=== PATIENT | female | born 1990 | race Caucasian/White ===

== ENCOUNTER 2017-03-06 23:52 | Emergency (ER) | payer OTHER ==
[~2017-03-06] VITALS: Ht 167.6 cm; Wt 75.9 kg
[~2017-03-06 23:52] MED LIST: FLNIN/ NAE
[2017-03-06 23:54] VITALS: TEMP 37; Ht 167.6 cm; Wt 75.9 kg
[2017-03-07] MEDS ORDERED: PRED50TA PO (00:09)
[2017-03-07] MEDS ORDERED: AMOX875T PO (00:09)
[2017-03-07] MEDS ORDERED: AMOXICIL/CLAVU 875MG HOME PACK PO ONE (00:15)
--- NOTE | 2017-03-07 00:24 | EMERGENCY ROOM VISIT NOTE ---
History First contact with patient: 23:58 Chief Complaint: FLU LIKE SX Stated Complaint: SICK SINUS COUGH History of Present Illness The patient is a 26 year old female who presents to the Emergency Room with complaints of sinus pain and congestion with fever and chills for the past several days. Patient has a history of sinusitis and symptoms feel similar. She normally needs antibiotics and steroids. She follows with ENT. She has an appointment in a few days with the family care doctor. Patient denies neck stiffness, chest pain, dyspnea, abdominal pain, sore throat. She is tolerating by mouth fluids and food. She smokes. No temperature was taken. Review of Systems See HPI for pertinent positives & negatives. A total of 10 systems reviewed and were otherwise negative. Past Medical/Surgical History Medical Problems: (1) Lymphadenopathy, cervical (2) No Known Active Medical Problems (3) Sinusitis, acute (4) Sinusitis, acute (5) Sinusitis, acute Family History Cancer Diabetes mellitus Heart disease Hypertension Social History Smoking Status: Current Every Day Smoker Alcohol Use: none Drug Use: none Housing Status: lives with family Occupation Status: employed Current/Historical Medications Scheduled Amoxicillin & Pot Clavulanate (Augmentin 875-125 mg), 1 TAB PO BID Fluticasone Propionate (Fluticasone Propionate), 2 SPRAYS JEANNETTE DAILY Prednisone (Prednisone), 50 MG PO DAILY Physical Exam Vital Signs Date Time Temp Pulse Resp B/P (MAP) Pulse Ox O2 Delivery O2 Flow Rate FiO2 03/06/17 23:54 37.0 80 16 125/82 98 Room Air Physical Exam VITALS: Vitals are noted on the nurse's note and reviewed by myself. Vital signs stable. GENERAL: Pleasant female, in no acute distress, nondiaphoretic, well-developed well-nourished. SKIN: The skin was without rashes, erythema, edema, or bruising. There is no tenting of the skin. Capillary reflex less than 2 seconds. HEAD: Normocephalic atraumatic. EARS: External auditory canals clear, tympanic membranes pearly ann without erythema or effusion bilaterally. EYES: Pupils equal round and reactive to light and accommodation. Conjunctivae without injection, sclerae without icterus. Extraocular movements intact. NOSE: Patent, turbinates without inflammation or discharge. Maxillary sinus tenderness. MOUTH: Mucous membranes moist. Pharynx without erythema or exudate. Uvula midline. Airway patent. Tongue does not deviate. NECK: Supple without nuchal rigidity. No lymphadenopathy. No thyromegaly. Cervical spine is nontender. No JVD. No meningeal signs HEART: Regular rate and rhythm without murmurs gallops or rubs. LUNGS: Clear to auscultation bilaterally without wheezes, rales or rhonchi. No dullness to percussion. No retractions or accessory muscle use. ABDOMEN: Positive bowel sounds x 4. Normal tympanic percussion. Soft, nontender, without masses or organomegaly. Riggins sign negative. No guarding or rebound tenderness. No CVA tenderness MUSCULOSKELETAL: No muscle atrophy, erythema, or edema noted. NEURO: Patient was alert and oriented to person place and time. Normal sensation to light and sharp touch. No focal neurological deficits. Medical Decision & Procedures ED Course Prior records/ancillary studies reviewed. Triage Nursing notes reviewed. The patient's history was concerning for a cold sx Differential diagnosis: Etiologies such as viral syndrome, sinusitis, tonsillitis, otitis, pneumonia, influenza, as well as others were entertained. ER treatment provided: Augmentin, prednisone On reassessment the patient felt better. Diagnostics interpreted by me: Deferred This appears to be consistent with sinusitis. Patient had symptoms for several days. She was started on antibiotics. She is advised follow-up family care in her ENT doctor in a few days or here in the ER sooner for high fevers, lethargy , neck stiffness, worsening signs or symptoms or as needed. Patient no signs of airway, moist. No signs of meningitis.. By the evaluation outlined above emergent etiologies such as peritonsillar abscess, retropharyngeal abscess, otitis, pneumonia, meningitis, urinary tract infection, sepsis, bacteremia, as well as others were deemed relatively unlikely. The pt informed about the findings as listed above. All questions were answered and pleased with the treatment. Return instructions were outlined and the patient was discharged in stable condition. Outpatient prescription management: maddie herrera Referral: The patient was referred back to their primary care physician/ENT for follow-up in 2 to 3 days for a recheck of the current condition. Medical Decision As above Medication Reconcilliation Current Medication List: was personally reviewed by me Blood Pressure Screening Patient's blood pressure: Normal blood pressure Impression Primary Impression: Maxillary sinusitis, acute Departure Information Dispostion Home / Self-Care Condition GOOD Prescriptions Amoxicillin & Pot Clavulanate (Augmentin 875-125 mg) 1 Tab Tab 1 TAB PO BID for 9 Days, #18 TAB Prov: Julita Salvador PA-C 03/07/17 Prednisone (Prednisone) 50 Mg Tab 50 MG PO DAILY for 4 Days, #4 TAB Prov: uJlita Salvador PA-C 03/07/17 Forms HOME CARE DOCUMENTATION FORM, Work Instructions, Return To Work: 2 days IMPORTANT VISIT INFORMATION Patient Instructions Sinusitis Acute, My [facility] Additional Instructions Augmentin 875mg: Take one tablet 2 times daily for 10 days. All antibiotics can cause diarrhea. If this occurs and you feel worse or it does not resolve in 1-2 days follow up with your doctor or return to the Emergency Department as this could be signs of serious underlying problems. Any medication can cause an allergic reaction, stop the pills immediately and return to the ER for rash, hives, breathing difficulties, or swelling. Prednisone 50mg: Once daily until the prescription is finished. It is best to take this earlier in the day as some patients note occasional difficulty falling asleep when taken in the late evening. Acetaminophen(Tylenol) may be used for fever or pain. Use 1000mg every six hours as needed. Avoid using more than 3000mg in a 24 hour period. (AND/OR) Ibuprofen(Motrin, Advil) may be used for fever or pain. Use 600mg every six hours as needed. Take with food. Avoid using more than 2400mg in a 24 hour period. Do not use 2400mg per day for more than three consecutive days without physician direction. Prolonged inappropriate use can lead to stomach upset or ulcers. Afrin nasal spray: 2-3 sprays to each nostril twice daily as needed for congestion. Do not use for more than 3-4 days because it can lead to worsening rebound congestion. Pseudoephedrine(Sudaphed): 30-60mg every 6 hours as needed for nasal congestion. Do not take this with other stimulant products or supplements. Rest and drink plenty of fluids. Controlling your fever with Tylenol and Ibuprofen as above will make you feel better. Wash your hands after nose blowing, sneezing, or coughing. Most germs are spread through contact, therefore improper hygiene may result in your close contacts and loved ones becoming ill just like you. Continue current medications. Return to the ER for severe headache, neck stiffness, chest pain, difficulty breathing, fevers, vomiting, worsening of your condition, or as needed. Follow up with your primary physician this week for a recheck of your current condition. Work Instructions Return To Work: 2 days Problem Qualifiers Primary Impression: Maxillary sinusitis, acute Recurrence: recurrent Qualified Codes: J01.01 - Acute recurrent maxillary sinusitis
[2017-03-07 00:30] VITALS: BP 129/77; PULSE 72; O2SAT 97
== END 2017-03-07 00:30 | disposition home or self-care (01) ==
LOC: C.EDB 23:53 → C.EDA 03-07 00:30
DX: J01.00 Acute maxillary sinusitis, unspecified (principal); F17.200 Nicotine dependence, unspecified, uncomplicated; Z86.19 Personal history of other infectious and parasitic diseases; Z80.9 Family history of malignant neoplasm, unspecified; Z83.3 Family history of diabetes mellitus; Z82.49 Family history of ischemic heart disease and other diseases of the circulatory system

== ENCOUNTER 2017-05-07 21:47 | Emergency (ER) | payer OTHER ==
[~2017-05-07] VITALS: Ht 165.1 cm; Wt 73.1 kg
[2017-05-07 21:53] VITALS: TEMP 36.8; Ht 165.1 cm; Wt 73.1 kg
[2017-05-07] MEDS ORDERED: ONDANSETRON INJ 2 MG/ML 2 ML VIAL IV STA (22:12)
[2017-05-07] MEDS ORDERED: KETOROLAC TROMETHAMINE 30 MG/ML VIAL IV STA (22:12)
[2017-05-07] MEDS ORDERED: DEXAMETHASONE SOD INJ 4 MG/ML VIAL IV STA (22:12)
[2017-05-07] MEDS ORDERED: ETON1IMP2 INTRAD (22:25)
[2017-05-07] MEDS ORDERED: ACET-1256 PO (22:25)
[2017-05-07] MEDS ORDERED: ASPI-390 PO (22:31)
[2017-05-07] MEDS ORDERED: IBUP-103 PO (22:31)
--- NOTE | 2017-05-07 22:51 | EMERGENCY ROOM VISIT NOTE ---
History First contact with patient: 21:58 Chief Complaint: HEADACHE Stated Complaint: MIGRAINE History of Present Illness The patient is a 27 year old female who presents to the Emergency Room with complaints of a migraine headache. The patient states she has had a headache since waking up with morning. She has a history of migraines. She stats that she typically has migraines a few times a month. The patient is scheduled to see a neurologist in [place] and a few months. She states the pain is located all over her head. She has associated nausea and vomiting. She also reports photosensitivity. She states this is very similar to her typical migraines. It is not the worst headache of her life. She rates her discomfort a 9/10. She has taken Excedrin and Motrin today without relief. She denies any fevers/chills, recent illness, neck pain/stiffness, blurred vision, slurred speech, numbness or weakness. Review of Systems A complete 10 point review of systems was reviewed with the patient with pertinent positives and negatives as per history of present illness. All else were negative. Past Medical/Surgical History Medical Problems: (1) Lymphadenopathy, cervical (2) No Known Active Medical Problems (3) Sinusitis, acute (4) Sinusitis, acute (5) Sinusitis, acute Family History Cancer Diabetes mellitus Heart disease Hypertension Social History Smoking Status: Never Smoker Alcohol Use: none Drug Use: none Housing Status: lives with family Occupation Status: employed Current/Historical Medications Scheduled Etonogestrel (Nexplanon), 68 MG INTRAD UD Scheduled PRN Acetaminophen (Tylenol), 1,000 MG PO Q6H PRN for Pain Ruvwqcg-Brndcbzvrcnkm-Kfvjxkpi (Excedrin Migraine), 1 TAB PO UD PRN for Migraine Fluticasone Propionate (Fluticasone Propionate), 2 SPRAYS JEANNETTE DAILY PRN for Allergy Symptoms Ibuprofen Tab (Advil), 400-600 MG PO Q6H PRN for Headache or Pain Physical Exam Vital Signs Date Time Temp Pulse Resp B/P (MAP) Pulse Ox O2 Delivery O2 Flow Rate FiO2 05/07/17 23:46 76 18 124/82 99 Room Air 05/07/17 21:53 36.8 85 20 140/84 98 Room Air Physical Exam VITALS: Vitals are noted on the nurse's note and reviewed by myself. Vital signs stable. GENERAL: This is a 27-year-old female, in no acute distress, nondiaphoretic, well-developed well-nourished. HEAD: Normocephalic atraumatic. EARS: External auditory canals clear, tympanic membranes pearly ann without erythema or effusion bilaterally. EYES: Pupils equal round and reactive to light and accommodation. Conjunctivae without injection, sclerae without icterus. Extraocular movements intact. MOUTH: Mucous membranes moist. Tonsils are not enlarged. Pharynx without erythema or exudate. NECK: Supple without nuchal rigidity. No lymphadenopathy. HEART: Regular rate and rhythm without murmurs gallops or rubs. LUNGS: Clear to auscultation bilaterally without wheezes, rales or rhonchi. MUSCULOSKELETAL: Strength 5/5 throughout. NEURO: Patient was alert and oriented to person place and time. Normal sensation to light and sharp touch. No focal neurological deficits. Medical Decision & Procedures Medications Administered Medications (Trade) Dose Ordered Sig/Alyssa Route Start Time Stop Time Status Last Admin Dose Admin Ketorolac Tromethamine (Toradol Inj) 30 mg NOW STAT IV 05/07/17 22:12 05/07/17 22:13 DC 05/07/17 22:39 30 MG Dexamethasone Sodium Phosphate (Decadron Inj) 10 mg NOW STAT IV 05/07/17 22:12 05/07/17 22:13 DC 05/07/17 22:40 10 MG Ondansetron HCl (Zofran Inj) 4 mg NOW STAT IV 05/07/17 22:12 05/07/17 22:13 DC 05/07/17 22:39 4 MG Medical Decision The differential diagnosis includes acute intracranial bleed, meningitis, encephalitis, mass or mass effect, sinusitis, infection, tumor, headache, temporal arteritis and carbon monoxide exposure, and migraine. The patient is a 27-year-old female who presents today complaining of a headache which she states is typical of her migraines. Patient was given IV Toradol, Decadron, and Zofran with complete resolution of her headache. There is no evidence of meningitis or encephalitis on exam. Patient was discharged home to follow up with her PCP. Based on the patient's presentation and work up, I feel the patient is stable for outpatient treatment. The patient was educated to return to the emergency department for any worsening of their current condition or new/concerning symptoms. She will follow up with her PCP. Medication Reconcilliation Current Medication List: was personally reviewed by me Blood Pressure Screening Patient's blood pressure: Normal blood pressure Impression Primary Impression: Migraine Departure Information Dispostion Home / Self-Care Condition GOOD Referrals Fay Figueroa (PCP) Patient Instructions My [facility] Additional Instructions You have been treated in the Emergency Department for a Headache. For pain control, you can use the following zcvn-qbm-asrsdgo medicines (if >12 yo): - Regular strength (325mg/tab) Tylenol (acetaminophen) 2 tabs every 4-6 hours as needed. Do not exceed 12 tablets in a 24 hour period. Avoid taking more than 4 grams (4000 mg) of Tylenol per day. This includes any other sources of acetaminophen you may take on a regular basis. - Regular strength (200 mg/tab) Advil (ibuprofen) 1-2 tabs every 4-6 hours as needed. Do not exceed a dose of 3200 mg per day. You should relax in a quiet, dark place for the rest of the day. Avoid any possible triggers including: cigarette smoke, caffeine, nicotine, chocolate, wine, beer, loud noises or music, or bright lights. You should schedule a follow-up appointment in 2-3 days with your Primary Care Provider or established Neurologist for further evaluation and treatment of your Headache. Return to the Emergency Department if your current symptoms worsen despite treatment course outlined above, or if you develop any of the following symptoms : intractable pain despite aforementioned treatment course, visual disturbances , loss of vision, unilateral weakness or facial drooping, slurring of speech, loss of coordination, or loss of consciousness. Problem Qualifiers Primary Impression: Migraine Migraine type: unspecified Status migrainosus presence: without status migrainosus Intractability: not intractable Qualified Codes: G43.909 - Migraine, unspecified, not intractable, without status migrainosus
[2017-05-07 23:46] VITALS: BP 124/82; PULSE 76; O2SAT 99
== END 2017-05-07 23:51 | disposition home or self-care (01) ==
LOC: C.EDB 21:48 → C.EDC 23:51
DX: G43.909 Migraine, unspecified, not intractable, without status migrainosus (principal); Z83.3 Family history of diabetes mellitus; Z82.49 Family history of ischemic heart disease and other diseases of the circulatory system

== ENCOUNTER 2017-05-31 01:32 | Emergency (ER) | payer OTHER ==
[~2017-05-31] VITALS: Ht 165.1 cm; Wt 71.4 kg
[~2017-05-31 01:32] MED LIST changes: +ACET-1256 PO; +ASPI-390 PO; +ETON1IMP2 INTRAD; +IBUP-103 PO
[2017-05-31 01:42] VITALS: Ht 165.1 cm; Wt 71.4 kg
[2017-05-31] MEDS ORDERED: MoRPHine SULFATE 4 MG/ML 1 ML CARP\\VIAL IV STA (01:55)
[2017-05-31] MEDS ORDERED: ONDANSETRON INJ 2 MG/ML 2 ML VIAL IV STA (01:55)
--- NOTE | 2017-05-31 02:09 | EMERGENCY ROOM VISIT NOTE ---
History Report prepared by Zoraida: Milan Magana Under the Supervision of: Dr. Kamran Ford M.D. First contact with patient: 01:45 Chief Complaint: ABDOMINAL PAIN Stated Complaint: SEVERE ABDOMINAL PAIN History of Present Illness The patient is a 27 year old female who presents to the Emergency Room with complaints of constant lower abdominal that began last night. She rates her pain as a 10/10 in severity. The patient states that the pain is relieved with bending her knees. The patient reports that the pain is mainly in the left lower quadrant but admits that the pain radiates to her right lower abdomen and back. She reports that she has also been experiencing intermittent nausea. The patient states that she took Motrin and Tylenol for her symptoms but denies any relief. She states that she is currently on a control pill and denies having menstrual period. The patient denies a history of abdominal issues, injuries, trauma, loss of consciousness, diarrhea, drinking alcohol, urinary symptoms, and ankle swelling. Source of History: patient Onset: last night Position: abdomen (lower) Symptom Intensity: 10/10 Timing: constant Modifying Factors (Relieving): tylenol, other (Motrin, raising her knees) Associated Symptoms: + nausea, + back pain, No LOC, No diarrhea, No urinary symptoms Review of Systems See HPI for pertinent positives & negatives. A total of 10 systems reviewed and were otherwise negative. Past Medical & Surgical Medical Problems: (1) Lymphadenopathy, cervical (2) No Known Active Medical Problems (3) Sinusitis, acute (4) Sinusitis, acute (5) Sinusitis, acute Family History Cancer Diabetes mellitus Heart disease Hypertension Social History Smoking Status: Current Every Day Smoker Alcohol Use: none Drug Use: none Housing Status: lives with family Occupation Status: employed Current/Historical Medications Scheduled Etonogestrel (Nexplanon), 68 MG INTRAD UD Scheduled PRN Acetaminophen (Tylenol), 1,000 MG PO Q6H PRN for Pain Rdetghx-Jxiausbqandfx-Tshevugo (Excedrin Migraine), 1 TAB PO UD PRN for Migraine Fluticasone Propionate (Fluticasone Propionate), 2 SPRAYS JEANNETTE DAILY PRN for Allergy Symptoms Ibuprofen Tab (Advil), 400-600 MG PO Q6H PRN for Headache or Pain Allergies Coded Allergies: Velásquez (Unverified Allergy, Unknown, ANAPHYLAXIS, 05/31/17) Physical Exam Vital Signs Date Time Temp Pulse Resp B/P (MAP) Pulse Ox O2 Delivery O2 Flow Rate FiO2 05/31/17 03:07 78 16 142/74 98 05/31/17 02:54 78 16 142/74 98 Room Air 05/31/17 01:42 36.9 96 18 126/79 99 Room Air Physical Exam GENERAL: Patient is uncomfortable appearing and in moderate distress. HEENT: No acute trauma, normocephalic atraumatic, mucous membranes moist, no nasal congestion, no scleral icterus. NECK: No stridor, no adenopathy, no meningismus, trachea is midline. LUNGS: No dyspnea. Clear to auscultation and equal bilaterally. No wheeze, no rhonchi. HEART: Regular rate and rhythm. No murmurs, rubs, gallops appreciated. ABDOMEN: Soft, vague bilateral mid abdominal tenderness without rebound or guarding, bowel sounds positive, no masses appreciated, no peritonitis. BACK: No midline tenderness, no CVA tenderness EXTREMITIES: Normal motion all extremities, no cyanosis, no edema. NEUROLOGIC: Alert and oriented, no acute motor or sensory deficits, no focal weakness, cranial nerves grossly intact. SKIN: No rash, no jaundice, no diaphoresis. Medical Decision & Procedures Laboratory Results 05/31/17 01:50 Red Blood Count 4.73, Mean Corpuscular Volume 94.5, Mean Corpuscular Hemoglobin 31.7, Mean Corpuscular Hemoglobin Concent 33.6, Mean Platelet Volume 11.1, Neutrophils (%) (Auto) 73.6, Lymphocytes (%) (Auto) 18.1, Monocytes (%) (Auto) 6.3, Eosinophils (%) (Auto) 1.6, Basophils (%) (Auto) 0.3, Neutrophils # (Auto) 6.77, Lymphocytes # (Auto) 1.67, Monocytes # (Auto) 0.58, Eosinophils # (Auto) 0.15, Basophils # (Auto) 0.03 05/31/17 01:50 Test 05/31/17 01:50 White Blood Count 9.21 K/uL (4.8-10.8) Red Blood Count 4.73 M/uL (4.2-5.4) Hemoglobin 15.0 g/dL (12.0-16.0) Hematocrit 44.7 % (37-47) Mean Corpuscular Volume 94.5 fL (80-100) Mean Corpuscular Hemoglobin 31.7 pg (25-34) Mean Corpuscular Hemoglobin Concent 33.6 g/dl (32-36) Platelet Count 216 K/uL (130-400) Mean Platelet Volume 11.1 fL (7.4-10.4) Neutrophils (%) (Auto) 73.6 % Lymphocytes (%) (Auto) 18.1 % Monocytes (%) (Auto) 6.3 % Eosinophils (%) (Auto) 1.6 % Basophils (%) (Auto) 0.3 % Neutrophils # (Auto) 6.77 K/uL (1.4-6.5) Lymphocytes # (Auto) 1.67 K/uL (1.2-3.4) Monocytes # (Auto) 0.58 K/uL (0.11-0.59) Eosinophils # (Auto) 0.15 K/uL (0-0.5) Basophils # (Auto) 0.03 K/uL (0-0.2) RDW Standard Deviation 43.4 fL (36.4-46.3) RDW Coefficient of Variation 12.6 % (11.5-14.5) Immature Granulocyte % (Auto) 0.1 % Immature Granulocyte # (Auto) 0.01 K/uL (0.00-0.02) Urine Color YELLOW Urine Appearance CLOUDY (CLEAR) Urine pH 7.5 (4.5-7.5) Urine Specific [place] 1.014 (1.000-1.030) Urine Protein NEG (NEG) Urine Glucose (UA) NEG (NEG) Urine Ketones NEG (NEG) Urine Occult Blood NEG (NEG) Urine Nitrite NEG (NEG) Urine Bilirubin NEG (NEG) Urine Urobilinogen NEG (NEG) Urine Leukocyte Esterase TRACE (NEG) Urine WBC (Auto) 1-5 /hpf (0-5) Urine RBC (Auto) 0-4 /hpf (0-4) Urine Hyaline Casts (Auto) 1-5 /lpf (0-5) Urine Epithelial Cells (Auto) 10-20 /lpf (0-5) Urine Bacteria (Auto) NEG (NEG) Urine Test NEG (NEG) Anion Gap 5.0 mmol/L (3-11) Est Creatinine Clear Calc Drug Dose 115.8 ml/min Estimated GFR () 133.4 Estimated GFR (Non- 115.1 BUN/Creatinine Ratio 10.0 (10-20) Calcium Level 8.7 mg/dl (8.5-10.1) Total Bilirubin 0.4 mg/dl (0.2-1) Direct Bilirubin 0.1 mg/dl (0-0.2) Aspartate Amino Transf (AST/SGOT) 9 U/L (15-37) Alanine Aminotransferase (ALT/SGPT) 18 U/L (12-78) Alkaline Phosphatase 70 U/L (45-117) Total Protein 8.0 gm/dl (6.4-8.2) Albumin 4.1 gm/dl (3.4-5.0) Lipase 139 U/L (73-393) Laboratory results as reviewed by me. Medications Administered Medications (Trade) Dose Ordered Sig/Alyssa Route Start Time Stop Time Status Last Admin Dose Admin Morphine Sulfate (MoRPHine SULFATE INJ) 4 mg NOW STAT IV 05/31/17 01:55 05/31/17 01:56 DC 05/31/17 02:03 4 MG Ondansetron HCl (Zofran Inj) 4 mg NOW STAT IV 05/31/17 01:55 05/31/17 01:56 DC 05/31/17 02:00 4 MG Ondansetron HCl (ZOFRAN ODT 4MG Home Pack) 1 homepack UD ONCE PO 05/31/17 03:00 05/31/17 03:01 DC 05/31/17 03:04 1 HOMEPACK Oxycodone HCl (Roxicodone Immediate Rel 5MG Home Pack) 1 homepack UD ONCE PO 05/31/17 03:00 05/31/17 03:01 DC 05/31/17 03:04 1 HOMEPACK ED Course 0151: The patient was evaluated in room B09. A complete history and physical exam was performed. 0155: Ordered Zofran Injection 4 mg IV, Morphine Sulfate 4 mg IV. 0244: I reevaluated the patient and discussed pros and cons of CT, including the possibility of this being a surgical issue. With shared decision making, she would like to go home at this time and see how she feels for the next 12-24 hours. She is aware of the symptoms for return. The patient is ready for discharge. 0300: Ordered Oxycodone HCl 1 homepack PO, Ondansetron HCl 1 homepack PO. Medical Decision Differential: Appendicitis, Diverticulitis, PUD/Gastritis, Biliary Pathology, UTI, Pyelonephritis, Renal Colic, Bowel Obstruction, Aortic Pathology, amongst other pathologies entertained. 27 yr old female with nausea and diffuse bilateral abdominal pains over last 12 hours. Exam relatively benign with non-surgical abdomen at this time. She has unremarkable vitals as well as normal labs. Without fever, significant wbc elevation and benign exam I do not feel CT imaging indicated though reviewed pros/cons of imaging and she wishes to hold off as well. She is feeling much better and in no distress. Awake, alert, oriented and comfortable. We will treat with very limited Oxy ir and zofran with plan RTED in 12-24 hour if no improvement, but if significant worsening, RTED immediately. I did make very clear to her this could be early surgical or bacterial issue, though at present she has no evidence of nor findings of them. Medication Reconcilliation Current Medication List: was personally reviewed by me Blood Pressure Screening Patient's blood pressure: Normal blood pressure Impression Primary Impression: Diffuse abdominal pain Additional Impression: Nausea Scribe Attestation The scribe's documentation has been prepared under my direction and personally reviewed by me in its entirety. I confirm that the note above accurately reflects all work, treatment, procedures, and medical decision making performed by me. Departure Information Dispostion Home / Self-Care Referrals Nohemy Cobos D.O. (PCP) Patient Instructions ED Abdominal Pain Unkn Cause, My [facility] Additional Instructions Rest and keep well hydrated over the next 48 hours. Return immediately if severe worsening of pain, passing out, increasing fevers, increased vomiting or other concerns. Return to ED in 12-24 hours if no improvement in pain or other persistent symptoms. You have received a narcotic pain medication. These medications may cause drowsiness and should not be used with other sedative medications. Do not drive , drink alcohol, perform dangerous activities, nor make important decisions after taking these medications. correction use or inappropriate use may lead to addiction. Problem Qualifiers
[2017-05-31 02:10] LABS: BASO % 0.3 %; BASO ABS # 0.03 K/uL (0-0.2); COMPLETE YES; EOS % 1.6 %; HEMATOCRIT 44.7 % (37-47); IG% 0.1 %; LYMPH % 18.1 %; LYMPH ABS # 1.67 K/uL (1.2-3.4); MEAN CELL VOLUME 94.5 fL (80-100); MEAN CORPUSCULAR HEMOGLOBIN 31.7 pg (25-34); MEAN CORPUSCULAR HGB CONC 33.6 g/dl (32-36); MEAN PLATELET VOLUME 11.1 fL (7.4-10.4); MONO % 6.3 %; NEUT % 73.6 %; PLATELET COUNT 216 K/uL (130-400); RED BLOOD COUNT 4.73 M/uL (4.2-5.4); WHITE BLOOD COUNT 9.21 K/uL (4.8-10.8)
[2017-05-31 02:14] LABS: URINE APPEARANCE CLOUDY (CLEAR); URINE BILIRUBIN NEG (NEG); URINE COLOR YELLOW; URINE NITRITE NEG (NEG); URINE PH 7.5 (4.5-7.5); URINE SPECIFIC GRAVITY 1.014 (1.000-1.030); UROBILINOGEN NEG (NEG); ZZUR CULT IF INDIC CLEAN CATCH NO
[2017-05-31 02:15] LABS: MANUAL MICROSCOPIC REQUIRED? NO; REVIEW REQ? NO
[2017-05-31 02:27] LABS: CALCIUM 8.7 mg/dl (8.5-10.1); CREATININE 0.71 mg/dl (0.60-1.20); POTASSIUM 3.4 mmol/L (3.5-5.1)
[2017-05-31] MEDS ORDERED: ONDANSETRON HOME PACK 4MG OD TAB PO ONE (03:00)
[2017-05-31] MEDS ORDERED: OXYCODONE IR HOME PACK PO ONE (03:00)
[2017-05-31 03:07] VITALS: BP 142/74; PULSE 78; O2SAT 98
== END 2017-05-31 03:05 | disposition home or self-care (01) ==
LOC: C.EDB 01:33
DX: R10.32 Left lower quadrant pain (principal); R10.31 Right lower quadrant pain; R11.0 Nausea; F17.200 Nicotine dependence, unspecified, uncomplicated; Z80.9 Family history of malignant neoplasm, unspecified; Z83.3 Family history of diabetes mellitus; Z82.49 Family history of ischemic heart disease and other diseases of the circulatory system

== ENCOUNTER 2017-06-19 18:42 | Emergency (ER) | payer OTHER ==
[~2017-06-19] VITALS: Ht 165.1 cm; Wt 72.4 kg
[~2017-06-19 18:42] MED LIST changes: -ACET-1256 PO; -ASPI-390 PO; -FLNIN/ NAE; -IBUP-103 PO
[2017-06-19 18:45] VITALS: TEMP 37.1; Ht 165.1 cm; Wt 72.4 kg
--- NOTE | 2017-06-19 19:14 | DIAGNOSTIC IMAGING REPORT ---
CHEST ONE VIEW PORTABLE CLINICAL HISTORY: 27 years-old Female presenting with cough . TECHNIQUE: Portable upright AP view of the chest was obtained. COMPARISON: 07/25/2015. FINDINGS: Cardiomediastinal silhouette normal. Lungs and pleural spaces clear. Osseous structures normal. Upper abdomen normal. IMPRESSION: 1. No acute cardiopulmonary disease. Electronically signed by: Raymond Serrano M.D. 06/19/2017 7:12 PM Dictated Date/Time: 06/19/2017 7:12 PM
[2017-06-19] MEDS ORDERED: AMOXICILLIN/CLAVULANATE TAB 875 MG TAB PO ONE (20:00)
[2017-06-19] MEDS ORDERED: AMOX875T PO (20:17)
[2017-06-19 20:24] VITALS: BP 118/69; PULSE 74; O2SAT 95
[2017-06-19] MEDS ORDERED: ASPI-390 PO (22:31)
--- NOTE | 2017-06-19 23:06 | EMERGENCY ROOM VISIT NOTE ---
History Report prepared by Zoraida: Aminah Medeiros Under the Supervision of: Joey RandolphO. First contact with patient: 18:46 Chief Complaint: CONGESTION Stated Complaint: SINUS INFECTION History of Present Illness The patient is a 27 year old female who presents to the Emergency Room with complaints of persistent congestion that began 2 weeks ago. The patient notes that she has been having a sore throat, runny nose, ear pain, and a mild productive cough. She states that she has been taking over the counter medication for her cough, which helps relieve her symptom. The patient notes that her PCP is unable to see her for another week. She also has severe congestion over bilateral frontal sinuses and maxillary sinuses. Pt denies headache, change in vision, fevers, chest pain, shortness of breath, nausea, vomiting, diarrhea, pain with urination, and melena. Source of History: patient Onset: 2 weeks ago Position: other (global ) Timing: other (persistent ) Modifying Factors (Relieving): other (over counter medication) Associated Symptoms: + sorethroat Review of Systems See HPI for pertinent positives & negatives. A total of 10 systems reviewed and were otherwise negative. Past Medical & Surgical Medical Problems: (1) Lymphadenopathy, cervical (2) No Known Active Medical Problems (3) Sinusitis, acute (4) Sinusitis, acute (5) Sinusitis, acute Family History Cancer Diabetes mellitus Heart disease Hypertension Social History Smoking Status: Current Every Day Smoker Alcohol Use: none Drug Use: none Housing Status: lives with family Occupation Status: employed Current/Historical Medications Scheduled Amoxicillin & Pot Clavulanate (Augmentin 875-125 mg), 875 MG PO BID Scheduled PRN Acetaminophen (Tylenol), 1,000 MG PO Q6H PRN for Pain Ltcvdyq-Wdhtktlrxkvac-Bqukzhka (Excedrin Migraine), 1 TAB PO UD PRN for Migraine Fluticasone Propionate (Fluticasone Propionate), 2 SPRAYS JEANNETTE DAILY PRN for Allergy Symptoms Ibuprofen Tab (Advil), 400-600 MG PO Q6H PRN for Headache or Pain Allergies Coded Allergies: Velásquez (Unverified Allergy, Unknown, ANAPHYLAXIS, 05/31/17) Physical Exam Vital Signs Date Time Temp Pulse Resp B/P (MAP) Pulse Ox O2 Delivery O2 Flow Rate FiO2 06/19/17 20:24 74 16 118/69 95 06/19/17 19:39 73 18 120/71 97 Room Air 06/19/17 18:45 37.1 85 16 120/70 95 Room Air Physical Exam GENERAL: Sitting up in bed, alert, well appearing, well nourished, no distress, non-toxic HEAD: Acute tenderness over frontal and maxillary sinuses. EYE EXAM: normal conjunctiva. PERRL and EOM's grossly intact. OROPHARYNX: no exudate, no erythema, lips, buccal mucosa, and tongue normal and mucous membranes are moist NECK: supple, no nuchal rigidity, no adenopathy, non-tender LUNGS: Dry non-productive cough. Clear to auscultation. Normal chest wall mechanics HEART: no murmurs, S1 normal and S2 normal ABDOMEN: abdomen soft, non-tender, normo-active bowel sounds, no masses, no rebound or guarding. SKIN: no rashes and no bruising UPPER EXTREMITIES: upper extremities are grossly normal. LOWER EXTREMITIES: No pitting edema. NEURO EXAM: Normal sensorium, cranial nerves II-XII grossly intact, normal speech, no gross weakness of arms, no gross weakness of legs. No drift. Finger to nose intact. Gross sensation intact. Medical Decision & Procedures ER Provider Diagnostic Interpretation: Radiology results as stated below per my review and the radiologist's interpretation: CHEST ONE VIEW PORTABLE CLINICAL HISTORY: 27 years-old Female presenting with cough . TECHNIQUE: Portable upright AP view of the chest was obtained. COMPARISON: 07/25/2015. FINDINGS: Cardiomediastinal silhouette normal. Lungs and pleural spaces clear. Osseous structures normal. Upper abdomen normal. IMPRESSION: 1. No acute cardiopulmonary disease. Electronically signed by: Raymond Serrano M.D. 06/19/2017 7:12 PM Dictated Date/Time: 06/19/2017 7:12 PM Medications Administered Medications (Trade) Dose Ordered Sig/Alyssa Route Start Time Stop Time Status Last Admin Dose Admin Amoxicillin/ Clavulanate Potassium (Augmentin Tab) 875 mg NOW ONCE PO 06/19/17 20:00 06/19/17 20:01 DC 06/19/17 20:16 875 MG ED Course ED COURSE: Vital signs were reviewed and showed normal vitals. The patients medical record was reviewed The above diagnostic studies were performed and reviewed. ED treatments and interventions as stated above. 1859: The patient was evaluated in room A10. A complete history and physical examination was performed. 1999: I reevaluated the patient, she was resting. Ordered Augmentin Tab 875mg PO. 2002: I reevaluated the patient, who is resting comfortably. I discussed all test findings and she verbalized complete understanding and agreement. The patient was discharged home. Medical Decision Differential diagnosis: Etiologies such as sepsis, UTI, pneumonia, metabolic, electrolyte abnormalities , cardiac sources, intracerebral event, toxicologic, neurologic, as well as others were entertained. The patient is a 27 year old female who presents to the ED with complaints of persistent congestion. Patient notes that she has had these symptoms for the past 2 weeks. On exam she has bilateral maxillary and frontal sinus tenderness. She does have a nonproductive cough. Lungs are clear. Chest x- ray is unremarkable. Vitals are stable. Facial or symptoms of do believe that she likely has bronchitis/sinusitis. Due to the duration and to cover with Augmentin. She was discharged follow-up with PCP. Discussed with Pt concerning signs and symptoms to watch out for. Pt was instructed to follow up with their PCP and discussed with the patient their option to return to the ED at anytime for persistent or worsening symptoms. The appropriate anticipatory guidance and out-patient management, including indications for return to the emergency department, were explained at length to the patient and understood. Medication Reconcilliation Current Medication List: was personally reviewed by me Blood Pressure Screening Patient's blood pressure: Normal blood pressure Impression Primary Impression: Sinusitis Scribe Attestation The scribe's documentation has been prepared under my direction and personally reviewed by me in its entirety. I confirm that the note above accurately reflects all work, treatment, procedures, and medical decision making performed by me. Departure Information Dispostion Home / Self-Care Prescriptions Amoxicillin & Pot Clavulanate (Augmentin 875-125 mg) 1 Tab Tab 875 MG PO BID for 10 Days, TAB Prov: Lencho Cristobal, 06/19/17 Referrals Nohemy Cobos D.O. (PCP) Forms HOME CARE DOCUMENTATION FORM, IMPORTANT VISIT INFORMATION Patient Instructions My [facility] Additional Instructions Please follow up with your primary care doctor with in the next 24 hours. Any worsening of your symptoms, please return to the ED immediately. This includes any fevers greater than 100.4, worsening pain, chest pain, shortness breath, persistent nausea, vomiting, unable to eat or drink, or any other concerning signs or symptoms from your standpoint. Please take antibiotics as prescribed. Problem Qualifiers Primary Impression: Sinusitis Sinusitis location: unspecified location Chronicity: unspecified Qualified Codes: J32.9 - Chronic sinusitis, unspecified
== END 2017-06-19 20:21 | disposition home or self-care (01) ==
LOC: C.EDB 18:43 → C.EDA 20:21
DX: J32.9 Chronic sinusitis, unspecified (principal); Z83.3 Family history of diabetes mellitus; Z82.49 Family history of ischemic heart disease and other diseases of the circulatory system; F17.200 Nicotine dependence, unspecified, uncomplicated

== ENCOUNTER 2017-07-26 21:01 | Emergency (ER) | payer OTHER ==
[~2017-07-26] VITALS: Ht 165.1 cm; Wt 71.7 kg
[~2017-07-26 21:01] MED LIST changes: +ASPI-390 PO; -ETON1IMP2 INTRAD
[2017-07-26 21:10] VITALS: TEMP 36.8; Ht 165.1 cm; Wt 71.7 kg
[2017-07-26] MEDS ORDERED: FLNIN/ NAE (21:42)
[2017-07-26] MEDS ORDERED: SODIUM CHLORIDE 0.9% 1000ML 1,000 ML IV STA (21:47)
--- NOTE | 2017-07-26 21:56 | EMERGENCY ROOM VISIT NOTE ---
History First contact with patient: 21:35 Chief Complaint: ED VAG BLEEDING Stated Complaint: HEAVY BLEEDING History of Present Illness The patient is a 27 year old female who presents to the Emergency Room with complaints of heavy vaginal bleeding and cramping which began at 2:00 this morning. The patient states she took a urine test on which was positive. Of note, she does have a history of falls positive and negative urine tests. The patient's last menstrual period was June 02. The patient does have a history of spontaneous abortions which have presented similarly. She reports soaking through one menstrual pad per hour and passing quarter sized clots. She states at one point, she sat on the toilet for 1.5 hours because the blood was running out of her vagina. She contacted her curtain stitcher from [facility], and was encouraged to come to the emergency department for evaluation. She denies recent illness. She denies urinary symptoms including dysuria, hematuria, or urinary frequency. The patient does report some mild cramping, but states it is very intermittent. She is scheduled to see the curtain stitcher for a quantitative hCG in 2 weeks, but has not had a quantitative test performed to this point. The patient denies any dizziness, nausea, vomiting, syncope, she will disturbances, or tachycardia. Review of Systems A complete 10 point review of systems was reviewed with the patient with pertinent positives and negatives as per history of present illness. All else were negative. Past Medical/Surgical History Medical Problems: (1) Lymphadenopathy, cervical (2) No Known Active Medical Problems (3) Sinusitis, acute (4) Sinusitis, acute (5) Sinusitis, acute Family History Cancer Diabetes mellitus Heart disease Hypertension Social History Smoking Status: Current Every Day Smoker Alcohol Use: none Drug Use: none Housing Status: lives with family Occupation Status: employed Current/Historical Medications Scheduled PRN Acetaminophen (Tylenol), 1,000 MG PO Q6H PRN for Pain Fluticasone Propionate (Fluticasone Propionate), 2 SPRAYS JEANNETTE DAILY PRN for Allergy Symptoms Ibuprofen Tab (Advil), 400-600 MG PO Q6H PRN for Headache or Pain Physical Exam Vital Signs Date Time Temp Pulse Resp B/P (MAP) Pulse Ox O2 Delivery O2 Flow Rate FiO2 07/26/17 23:06 65 20 111/64 98 Room Air 07/26/17 21:10 36.8 81 18 110/72 97 Room Air Physical Exam VITALS: Vitals are noted on the nurse's note and reviewed by myself. Vital signs stable. The patient is not tachycardic or hypotensive. GENERAL: This is a 27-year-old white female, in no acute distress, nondiaphoretic, well-developed well-nourished. SKIN: The skin was without rashes, erythema, edema, or bruising. There is no tenting of the skin. Capillary reflex less than 2 seconds. HEAD: Normocephalic atraumatic. EARS: External auditory canals clear, tympanic membranes pearly ann without erythema or effusion bilaterally. EYES: Pupils equal round and reactive to light and accommodation. Conjunctivae without injection, sclerae without icterus. Extraocular movements intact. NOSE: Patent, turbinates without inflammation or discharge. No sinus tenderness. MOUTH: Mucous membranes moist. Tonsils are not enlarged. Pharynx without erythema or exudate. Uvula midline. Airway patent. Tongue does not deviate. NECK: Supple without nuchal rigidity. No lymphadenopathy. No thyromegaly. Cervical spine is nontender. No JVD. HEART: Regular rate and rhythm without murmurs gallops or rubs. LUNGS: Clear to auscultation bilaterally without wheezes, rales or rhonchi. No dullness to percussion. No retractions or accessory muscle use. ABDOMEN: Positive bowel sounds x 4. Normal tympanic percussion. Very mild, diffuse tenderness on palpation. Soft, without masses or organomegaly. Riggins sign negative. No guarding or rebound tenderness. MUSCULOSKELETAL: No muscle atrophy, erythema, or edema noted. Full range of motion without joint tenderness in all extremities. No tenderness to palpation. Normal gait. Strength 5/5 throughout. NEURO: Patient was alert and oriented to person place and time. Normal sensation to light and sharp touch. Deep tendon reflexes 2+ throughout. No focal neurological deficits. Medical Decision & Procedures ER Provider Diagnostic Interpretation: US: FINDINGS: The uterus measures 8.8 x 3.3 x 5.2 cm. Endometrium measures 2 mm in thickness. No intrauterine gestational sac is identified. The right ovary is normal, measuring 3.1 x 2 x 2.5 cm. The left ovary measures 3.5 x 3.4 x 2.1 cm. There is a dominant follicle within the left ovary. There is a 1.4 cm suspected left paraovarian cyst. No associated increased vascularity is noted. This appears to arise from the left ovary. No adnexal mass is identified. There is no free fluid. IMPRESSION: 1. No intrauterine gestational sac identified. Correlation with beta hCG levels is recommended. 2. Dominant follicle within the left ovary and a suspected left paraovarian cyst. No sonographic evidence of an ectopic however correlation with beta hCG levels is recommended. Laboratory Results 07/26/17 21:55 Red Blood Count 4.33, Mean Corpuscular Volume 93.5, Mean Corpuscular Hemoglobin 31.6, Mean Corpuscular Hemoglobin Concent 33.8, Mean Platelet Volume 11.1, Neutrophils (%) (Auto) 65.3, Lymphocytes (%) (Auto) 26.2, Monocytes (%) (Auto) 4.1, Eosinophils (%) (Auto) 3.9, Basophils (%) (Auto) 0.5, Neutrophils # (Auto) 5.05, Lymphocytes # (Auto) 2.03, Monocytes # (Auto) 0.32, Eosinophils # (Auto) 0.30, Basophils # (Auto) 0.04 07/26/17 21:55 Test 07/26/17 21:55 07/26/17 22:05 White Blood Count 7.74 K/uL (4.8-10.8) Red Blood Count 4.33 M/uL (4.2-5.4) Hemoglobin 13.7 g/dL (12.0-16.0) Hematocrit 40.5 % (37-47) Mean Corpuscular Volume 93.5 fL (80-100) Mean Corpuscular Hemoglobin 31.6 pg (25-34) Mean Corpuscular Hemoglobin Concent 33.8 g/dl (32-36) Platelet Count 191 K/uL (130-400) Mean Platelet Volume 11.1 fL (7.4-10.4) Neutrophils (%) (Auto) 65.3 % Lymphocytes (%) (Auto) 26.2 % Monocytes (%) (Auto) 4.1 % Eosinophils (%) (Auto) 3.9 % Basophils (%) (Auto) 0.5 % Neutrophils # (Auto) 5.05 K/uL (1.4-6.5) Lymphocytes # (Auto) 2.03 K/uL (1.2-3.4) Monocytes # (Auto) 0.32 K/uL (0.11-0.59) Eosinophils # (Auto) 0.30 K/uL (0-0.5) Basophils # (Auto) 0.04 K/uL (0-0.2) RDW Standard Deviation 41.4 fL (36.4-46.3) RDW Coefficient of Variation 12.2 % (11.5-14.5) Immature Granulocyte % (Auto) 0.0 % Immature Granulocyte # (Auto) 0.00 K/uL (0.00-0.02) Anion Gap 8.0 mmol/L (3-11) Est Creatinine Clear Calc Drug Dose 89.6 ml/min Estimated GFR () 97.5 Estimated GFR (Non- 84.1 BUN/Creatinine Ratio 14.4 (10-20) Calcium Level 8.4 mg/dl (8.5-10.1) Human Chorionic Gonadotropin, Quant < 1 mIU/mL Urine Color RED Urine Appearance CLOUDY (CLEAR) Urine pH 6.0 (4.5-7.5) Urine Specific [place] 1.028 (1.000-1.030) Urine Protein 1+ (NEG) Urine Glucose (UA) NEG (NEG) Urine Ketones TRACE (NEG) Urine Occult Blood 3+ (NEG) Urine Nitrite NEG (NEG) Urine Bilirubin NEG (NEG) Urine Urobilinogen NEG (NEG) Urine Leukocyte Esterase SMALL (NEG) Urine WBC (Auto) 1-5 /hpf (0-5) Urine RBC (Auto) >30 /hpf (0-4) Urine Hyaline Casts (Auto) 0 /lpf (0-5) Urine Epithelial Cells (Auto) >30 /lpf (0-5) Urine Bacteria (Auto) NEG (NEG) Medications Administered Medications (Trade) Dose Ordered Sig/Alyssa Route Start Time Stop Time Status Last Admin Dose Admin Sodium Chloride 1,000 ml @ 999 mls/hr Q1H1M STAT IV 07/26/17 21:47 07/26/17 22:47 DC 07/26/17 21:47 999 MLS/HR ED Course The patient was seen and evaluated as above. IV access obtained, labs drawn. The patient was given 1 L normal saline solution. Labs and imaging reviewed by myself. I discussed the findings with the patient at bedside. Discharge instructions were reviewed, the patient was discharged home in good condition. Medical Decision This is a 27-year-old female with significant past medical history of spontaneous abortions who presents to the emergency department today complaining of significant bleeding for almost 24 hours. The patient has been passing order sized clots, and states she has been soaking through a pad every hour. She is concerned because she took a test 2 days prior which was positive. She does have a history of falls positive urine tests, and due to the bleeding, she is concerned for a spontaneous . The patient's labs showed no white count or anemia. The patient's electrolytes and renal function were normal. The patient's quantitative hCG was less than 1. Urinalysis did not show signs of infection. I suspect the patient is experiencing either a period or very early spontaneous , as her quant hCG is negative. She is not any significant amount of pain, and does not appear to be hemorrhaging profusely. Her vital signs and labs have been stable here in the emergency department. The patient was encouraged to follow up with her primary care provider and/or [place] in 1-2 days for reevaluation, and was given strict return precautions and bleeding precautions. Etiologies such as threatened AB, spontaneous AB, ectopic , dysfunction uterine bleeding, bleeding dyscrasia, trauma, infection, as well as others were entertained. Medication Reconcilliation Current Medication List: was personally reviewed by me Blood Pressure Screening Patient's blood pressure: Normal blood pressure Impression Primary Impression: Vaginal bleeding Departure Information Dispostion Home / Self-Care Condition GOOD Referrals Amy Maldonado D.O. (PCP) [facility] [employer] Patient Instructions ED Bleed Irregular Vaginal, My [facility] [address] Additional Instructions You were seen here in the emergency department today for heavy vaginal bleeding. As discussed, test was negative. Ultrasound did not reveal any obvious source of bleeding or obvious ectopic . There is no gestational sac. As discussed, if you were , it was extremely early on. Monitor bleeding for worsening: soaking through one menstrual pad per hour or passing fist-sized clots. Contact your [place] on Friday for re-check. Return to the ED for worsening bleeding, pain, passing large clots, continuing to soak through a pad per hour, passing out, lightheadedness, dizziness, nausea , or fast heart rate.
[2017-07-26 22:07] LABS: BASO % 0.5 %; BASO ABS # 0.04 K/uL (0-0.2); EOS % 3.9 %; HEMATOCRIT 40.5 % (37-47); HEMOGLOBIN 13.7 g/dL (12.0-16.0); LYMPH % 26.2 %; LYMPH ABS # 2.03 K/uL (1.2-3.4); MEAN CELL VOLUME 93.5 fL (80-100); MEAN CORPUSCULAR HEMOGLOBIN 31.6 pg (25-34); MEAN CORPUSCULAR HGB CONC 33.8 g/dl (32-36); MEAN PLATELET VOLUME 11.1 fL (7.4-10.4); MONO % 4.1 %; MONO ABS # 0.32 K/uL (0.11-0.59); NEUT % 65.3 %; NEUT ABS # 5.05 K/uL (1.4-6.5); PLATELET COUNT 191 K/uL (130-400); RED CELL DISTRIBUTION WIDTH CV 12.2 % (11.5-14.5); RED CELL DISTRIBUTION WIDTH SD 41.4 fL (36.4-46.3); WHITE BLOOD COUNT 7.74 K/uL (4.8-10.8)
[2017-07-26] MEDS ORDERED: ACET-1256 PO (22:25)
[2017-07-26] MEDS ORDERED: IBUP-103 PO (22:31)
[2017-07-26 22:55] LABS: CALCIUM 8.4 mg/dl (8.5-10.1); CREATININE 0.92 mg/dl (0.60-1.20); POTASSIUM 3.6 mmol/L (3.5-5.1)
--- NOTE | 2017-07-26 23:03 | DIAGNOSTIC IMAGING REPORT ---
<14 WKS SINGLE CLINICAL HISTORY: + , heavy bleeding/cramping COMPARISON STUDY: Pelvic ultrasound September 21, 2009. TECHNIQUE: Transabdominal and transvaginal sonography of the pelvis was performed. FINDINGS: The uterus measures 8.8 x 3.3 x 5.2 cm. Endometrium measures 2 mm in thickness. No intrauterine gestational sac is identified. The right ovary is normal, measuring 3.1 x 2 x 2.5 cm. The left ovary measures 3.5 x 3.4 x 2.1 cm. There is a dominant follicle within the left ovary. There is a 1.4 cm suspected left paraovarian cyst. No associated increased vascularity is noted. This appears to arise from the left ovary. No adnexal mass is identified. There is no free fluid. IMPRESSION: 1. No intrauterine gestational sac identified. Correlation with beta hCG levels is recommended. 2. Dominant follicle within the left ovary and a suspected left paraovarian cyst. No sonographic evidence of an ectopic however correlation with beta hCG levels is recommended. Electronically signed by: Sly Lopez M.D. 07/26/2017 11:02 PM Dictated Date/Time: 07/26/2017 10:55 PM
[2017-07-26 23:06] VITALS: BP 111/64; PULSE 65; O2SAT 98
== END 2017-07-26 23:39 | disposition home or self-care (01) ==
LOC: C.EDB 21:02 → C.EDA 23:39
DX: N93.9 Abnormal uterine and vaginal bleeding, unspecified (principal); F17.210 Nicotine dependence, cigarettes, uncomplicated; Z80.9 Family history of malignant neoplasm, unspecified; Z83.3 Family history of diabetes mellitus; Z82.49 Family history of ischemic heart disease and other diseases of the circulatory system